=== PATIENT | female | born 1985 | race African-American/Black ===

== ENCOUNTER 2022-02-22 12:28 | Outpatient (CLI) | payer BC ==
[2022-02-22] MEDS ORDERED: Magnevist 469MG/ML 20 ML VIAL ONE (15:04)
== END 2022-02-22 12:29 | disposition home or self-care (01) ==
LOC: TBSIIMAG 12:28
PROVIDERS: ATTEND Family Medicine
DX: I67.1 Cerebral aneurysm, nonruptured (principal); Z98.890 Other specified postprocedural states
CPT/HCPCS: 70553; A9579